=== PATIENT | male | born 1965 | race Caucasian/White ===

== ENCOUNTER 2017-01-21 14:00 | Emergency (ER) | payer SELFPAY ==
[2017-01-21 14:11] VITALS: BP 104/91; BMI 21.6
--- NOTE | 2017-01-21 15:42 | DR.ABDMALE ---
HPI - Time seen Time seen: 03:39 - PCP Primary Care Physician: none - Complaint Chief Complaint Doctors Comments: Abd pain w/o nausea, vomiting or diarrhea. Chief Complaint:: abdomen pain for several days hurting really bad - Reviewed Nurses Notes Review: Yes - Mode of arrival Mode of Arrival: Ambulatory - Timing Onset of Chief Complaint: 01/16/17 Came on: Gradually - Duration Duration: Intermittent Duration: Minutes - Location Location: LUQ, LLQ, Epigastric - Severity Severity: Moderate - Quality Quality: Aching, Burning - Context Onset: Unknown History of: Similar pain (dx) - Modifying factors Worsening Factors: Other (heat or hot water) - Associated signs and symptoms Associated Signs and Symptoms: None. denies: Diarrhea, Constipation, Melena PMH - PMH Past Medical History: No Past Surgical History: Yes Surgical History: Other Past Surgical History Comment: back - Family History History of Family Medical Conditions: Yes Family Medical History: Heart Failure, Hypertension - Social History Does patient currently use any type of tobacco product: Yes Have you used tobacco products in the last 12 months: Yes Type of Tobacco Use: Cigarettes How many years tobacco product used: 30 Does any household member use tobacco: No Alcohol Use: None Do you use any recreational Drugs:: No Lives With: Family Lives Where: Home - infectious screening In the last 2 months have you had wt loss of >10#?: NO Have you had fever, night sweats or hemotysis?: No Have you traveled outside the country in the last 6 months?: No Isolation: Standard ROS - Review of Systems Constitutional: No Symptoms Reported Eyes: No Symptoms Reported ENTM: No Symptoms Reported Respiratoy: No Symptoms Reported Cardiovascular: No Symptoms Reported Gastrointestinal/Abdominal: Abdominal Pain Neurological: No Symptoms Reported Musculoskeletal: No Symptoms Reported Integumentary: No Symptoms Reported Hematologic/Lymphatic: No Symptoms Reported Endocrine: No Symptoms Reported Psychiatric: No Symptoms Reported All Other Systems: Reviewed and Negative PE - Vital Signs Vital Signs: Pulse Resp BP Pulse Ox 01/21/17 14:07 115 H 18 104/91 98 - General Limitations: No Limitations General Appearance: Alert, In No Apparent Distress, Anxious - Head Head Exam: Normal Inspection - Eyes Eye exam: Normal Appearance, PERRL, EOMI - ENT ENT Exam: Normal Exam, Normal Oropharynx, Normal External Ear Exam, Mucous Membranes Moist - Neck Neck Exam: Normal Inspection, Full ROM, Trachea Midline - Chest Chest Inspection: Normal Inspection, Symmetric Chest Wall Rise - Respiratory Respiratory Exam: Normal Lung Sounds Bilat - Cardiovascular Cardiovascular Exam: Normal Rhythm, Tachycardia, Normal Heart Sounds - Abdominal Exam Abdominal Exam: Soft, Tenderness (LLQ and LUQ) - Back Back Exam: Normal Inspection - Extremeties Extremities Exam: Normal Inspection, Full ROM - Neurologic Neurological Exam: Alert, Oriented X3, CN II-XII Intact - Psychiatric Psychiatric Exam: Anxious - Skin Skin Exam: Warm, Dry, Intact ROR - Labs Reviewed Result Diagrams: 01/21/17 15:55 01/21/17 15:55 Laboratory: WBC 8.7 X10^3/uL (3.6-10.0) 01/21/17 15:55 RBC 4.46 X10^6/uL (4.7-6.0) L 01/21/17 15:55 Hgb 14.5 g/dL (13.5-18.0) 01/21/17 15:55 Hct 42.3 % (42.0-54.0) 01/21/17 15:55 MCV 94.9 fL (80.0-100.0) 01/21/17 15:55 MCH 32.6 pg (27.0-34.0) 01/21/17 15:55 MCHC 34.3 g/dL (33.0-35.0) 01/21/17 15:55 RDW 13.8 % (11.6-16.5) 01/21/17 15:55 Plt Count 250 X10^3/uL (150.0-450.0) 01/21/17 15:55 MPV 8.1 fL (7.4-11.0) 01/21/17 15:55 Neut % 51.9 % (42.0-75.0) 01/21/17 15:55 Lymph % 34.5 % (21.0-51.0) 01/21/17 15:55 Lanier % 10.8 % (0.0-13.0) 01/21/17 15:55 Eos % 2.2 % (0.9-2.9) 01/21/17 15:55 Baso % 0.6 % (0.2-1.0) 01/21/17 15:55 Neut # 4.5 x10^3/uL (2.2-4.8) 01/21/17 15:55 Lymph # 3.0 X10^3/uL (1.3-2.9) H 01/21/17 15:55 Lanier # 0.9 x10^3/uL (0.3-0.8) H 01/21/17 15:55 Eos # 0.2 x10^3/uL (0.0-0.2) 01/21/17 15:55 Baso # 0.0 X10^3/uL (0.0-0.1) 01/21/17 15:55 Absolute Nucleated RBC 0.0 /100WBC 01/21/17 15:55 Sodium 141 mmol/L (136-145) 01/21/17 15:55 Corrected Sodium TNP 01/21/17 15:55 Potassium 3.9 mmol/L (3.5-5.1) 01/21/17 15:55 Chloride 104 mmol/L (98-107) 01/21/17 15:55 Carbon Dioxide 30.0 mmol/L (21-32) 01/21/17 15:55 BUN 24 mg/dL (7-18) H 01/21/17 15:55 Creatinine 1.17 mg/dL (0.70-1.30) 01/21/17 15:55 Est GFR (MDRD) Af Amer > 60 (>60) 01/21/17 15:55 Est GFR (MDRD) Non-Af > 60 (>60) 01/21/17 15:55 Glucose 96 mg/dL (65-99) 01/21/17 15:55 Calcium 8.5 mg/dL (8.5-10.1) 01/21/17 15:55 Corrected Calcium TNP 01/21/17 15:55 Total Bilirubin 0.60 mg/dL (0.2-1.0) 01/21/17 15:55 AST 21 Units/L (15-37) 01/21/17 15:55 ALT 31 Units/L (12-78) 01/21/17 15:55 Alkaline Phosphatase 85 Units/L (46-116) 01/21/17 15:55 Total Protein 7.0 g/dL (6.4-8.2) 01/21/17 15:55 Albumin 3.7 g/dL (3.4-5.0) 01/21/17 15:55 Globulin 3.3 g/dL (2.5-4.5) 01/21/17 15:55 Albumin/Globulin Ratio 1.1 Ratio (1.1-2.1) 01/21/17 15:55 - Diagnosis Discharge Problem: Abdominal pain - Discharge Plan Disposition: 01 HOME, SELF-CARE Condition: Stable - Follow ups/Referrals Follow ups/Referrals: NFD,None [Primary Care Provider] - 3 days - Instructions Instructions: Abdominal Pain, Adult, [id number]
[2017-01-21 16:02] LABS: BASOPHILS % (AUTO) 0.6 % (0.2-1.0); EOSINOPHILS # (AUTO) 0.2 x10^3/uL (0.0-0.2); EOSINOPHILS % (AUTO) 2.2 % (0.9-2.9); HEMATOCRIT 42.3 % (42.0-54.0); HEMOGLOBIN 14.5 g/dL (13.5-18.0); LYMPHOCYTES % (AUTO) 34.5 % (21.0-51.0); MEAN CORPUSCULAR HEMOGLOBIN 32.6 pg (27.0-34.0); MEAN CORPUSCULAR HGB CONC 34.3 g/dL (33.0-35.0); MEAN CORPUSCULAR VOLUME 94.9 fL (80.0-100.0); MEAN PLATELET VOLUME 8.1 fL (7.4-11.0); MONOCYTES # (AUTO) 0.9 x10^3/uL (0.3-0.8); MONOCYTES % (AUTO) 10.8 % (0.0-13.0); NEUTROPHILS # (AUTO) 4.5 x10^3/uL (2.2-4.8); NEUTROPHILS % (AUTO) 51.9 % (42.0-75.0); PLATELET COUNT 250 X10^3/uL (150.0-450.0); RED BLOOD COUNT 4.46 X10^6/uL (4.7-6.0); RED CELL DISTRIBUTION WIDTH 13.8 % (11.6-16.5); WHITE BLOOD COUNT 8.7 X10^3/uL (3.6-10.0)
[2017-01-21 16:17] LABS: ALANINE AMINOTRANSFERASE 31 Units/L (12-78); ALBUMIN 3.7 g/dL (3.4-5.0); ALKALINE PHOSPHATASE 85 Units/L (46-116); ASPARTATE AMINO TRANSFERASE 21 Units/L (15-37); BLOOD UREA NITROGEN 24 mg/dL (7-18); CALCIUM 8.5 mg/dL (8.5-10.1); CHLORIDE 104 mmol/L (98-107); CREATININE 1.17 mg/dL (0.70-1.30); GLUCOSE 96 mg/dL (65-99); SODIUM 141 mmol/L (136-145); eGFR BLACK RACES > 60 (>60); eGFR NON BLACK RACES > 60 (>60)
--- NOTE | 2017-01-21 16:20 | RAD ---
HISTORY: Chest pain. Study: PA and lateral chest. Comparison: None. Findings: The trachea is midline. The cardiac silhouette is unremarkable. The lungs are clear without focal infiltrate or effusion. Multiple remote left upper rib fractures. The osseous structures otherwise appear normal for age. IMPRESSION: 1. No acute cardiopulmonary disease. Reported By:
[2017-01-21] MEDS ORDERED: PROTONIX TAB 40 MG PO ONE ×2 (16:45→16:56)
== END 2017-01-21 17:43 | disposition home or self-care (01) ==
LOC: ER 14:15
DX: R10.84 Generalized abdominal pain (principal)
CPT/HCPCS: 36415; 71020; 74176; 80053; 85025; 86677; 99283

== ENCOUNTER 2019-09-11 08:55 | Observation (INO) ==
[~2019-09-11 08:55] MED LIST: DECADRON INJ ONE; DIPRIVAN VIAL ONE; EPHEDRINE SULFATE INJ ONE; NEO-SYNEPHRINE INJ ONE; NEOSTIGMINE INJ ONE; NORCURON INJ 10 MG VIAL ONE; QUELICIN (OR ANECTINE) ONE; ROBINUL ONE; TORADOL 30 MG VIAL ONE; ULTANE GAS IN ONE; VERSED ONE; XYLOCAINE 1 % (PLAIN) ONE; ZOFRAN INJ 4 MG VIAL ONE
[2019-09-11 09:11] VITALS: BMI 22.0
[2019-09-11] MEDS ORDERED: NS 1000 ML 1,000 ML ONE (09:47)
[2019-09-11] MEDS ORDERED: DEMEROL INJ ONE (09:48)
[2019-09-11] MEDS ORDERED: DEMEROL INJ IVP ONE (10:02)
[2019-09-11] MEDS ORDERED: NS 1000 ML 1,000 ML IV ONE (10:02)
--- NOTE | 2019-09-11 10:03 | DR.EXTPAIN ---
HPI Time seen Time Seen by Provider: 09/11/19 09:40 PCP Primary Care Physician: LARON Mohan FNP HPI Comment HPI Comment: PATIENT IS 53YR OLD WHITE MALE IN ER WITH PAIN RIGHT INGUINAL HERNIA THAT IS NOT REDUCING. AT 04:30 THIS AM HE SAID IT BUSTED. NO FEVER. NAUSEATED BUT NO VOMITING. HISTORY CHRONIC BACK PAIN. NO DYSURIA. HERIA WAS DIAGNOSE 4 MONTHS AGO BY [employer] PRISCILL[employer] LARRY. Complaint/Symptoms Chief Complaint Doctor Comments: RIGHT INGUINAL HERNIA PAIN SINCE Chief Complaint:: PT C/O WAKING UP THIS AM AND HE C/O PAIN DUE TO HIS HERNIA HE WAS DX WITH A FEW MONTHS AGO, PT NOTED TO HAVE A SWELLING NOTED TO AREA ABOVE PENIS ( INGUINAL HERNIA NOTED ) PT STATES HE GOT UP THIS AM AND STARTED TO HAVE SOME PAIN THOUGHT SOMETHING HAS BUSTED ..BR Nurses notes reviewed Nurses Notes Review: Yes Source History Provided: Patient Mode of arrival Mode of Arrival: Ambulatory Timing Onset of Chief Complaint: 09/11/19 Context History of: Arthritis Associated signs and symptoms Associated Signs and Symptoms: Pain, Swelling, Abdominal Pain (RIGHT INGUINAL PAIN.) and Nausea PMH PMH Past Medical History: No Past Surgical History: Yes Surgical History: Other Past Surgical History Comment: BACK Family History History of Family Medical Conditions: No Family Medical History: Heart Failure and Hypertension Social History Does patient currently use any type of tobacco product: Yes Have you used tobacco products in the last 12 months: Yes Type of Tobacco Use: Cigarettes How many years tobacco product used: 30 Does any household member use tobacco: No Alcohol Use: Occasionally Do you use any recreational Drugs:: No Lives With: Family Lives Where: Home infectious screening In the last 2 months have you had wt loss of >10#?: NO Have you had fever, night sweats or hemotysis?: No Have you traveled outside the country in the last 6 months?: No Isolation: Standard ROS Review of Systems Constitutional: No Symptoms Reported and See HPI; negative Fever, Weakness and Fatigue Eyes: No Symptoms Reported and See HPI ENTM: No Symptoms Reported and See HPI; negative Ear Pain, Nose Discharge, Nose Congestion and Throat Pain Respiratoy: No Symptoms Reported and See HPI; negative Moist Cough, Short of Breath and Wheezing Cardiovascular: No Symptoms Reported and See HPI; negative Chest Pain and Edema Gastrointestinal/Abdominal: See HPI, Abdominal Pain and Nausea; negative Diarrh ea and Vomiting Genitourinary: No Symptoms Reported and See HPI; negative Dysuria, Frequency and Hematuria Neurological: No Symptoms Reported and See HPI; negative Headache, Weakness and Dizziness Musculoskeletal: No Symptoms Reported, See HPI and Back Pain (CHRONIC LOWER BACK PAIN.) Integumentary: No Symptoms Reported and See HPI; negative Change in Color, Rash and Juandice Hematologic/Lymphatic: No Symptoms Reported and See HPI; negative Easy Bruising and Swollen Glands Endocrine: No Symptoms Reported and See HPI; negative Increased Thirst and Increased Urine Psychiatric: No Symptoms Reported and See HPI All Other Systems: Reviewed and Negative PE Vital Signs Vitals: Temperature 97.8 F Pulse Rate 98 Respiratory Rate 18 Blood Pressure 132/82 O2 Sat by Pulse Oximetry 99 General Limitations: No Limitations General Appearance: Alert and In No Apparent Distress Head Head Exam: Normal Inspection and Atraumatic Eyes Eye exam: Normal Appearance and PERRL; negative Scleral Icterus and Conjunctival Injection ENT ENT Exam: Normal Exam, Normal Oropharynx, Normal External Ear Exam and TM's Normal Bilaterally Neck Neck Exam: Normal Inspection, Full ROM and Trachea Midline; negative Tenderness and Lymphadenopathy Chest Chest Inspection: Normal Inspection and Symmetric Chest Wall Rise; negative Tenderness Respiratory Respiratory Exam: Normal Lung Sounds Bilat; negative Accessory Muscle Use, Chest Wall Tenderness and Respiratory Distress Respiratory Exam: Bilateral: Clear to Auscultation Cardiovascular Cardiovascular Exam: Regular Rate, Normal Rhythm and Normal Heart Sounds; negative Systolic Murmur and Diastolic Murmur Abdominal Exam Abdominal Exam: Normal Inspection, Normal Bowel Sounds, Soft and Tenderness Abdominal Tenderness: RLQ and Suprapubic Extremities Extremities Exam: Normal Inspection and Normal Capillary Refill; negative Tenderness, Edema and Calf Tenderness Back Back Exam: Normal Inspection and Paraspinal Tenderness (LOWER BACK.) Neurological Neurological Exam: Alert, Oriented X3 and CN II-XII Intact; negative Motor Sensory Deficit Psychiatric Psychiatric Exam: Normal Affect, Normal Mood and Other (IN PAIN.) Skin Skin Exam: Warm, Dry, Intact and Normal Color MDM Differential Diagnosis Differential Diagnosis: Other (STRAGULATED OR INCACRCERATED INGUINAL HERNIA, RIGHT INGUINAL HERNIA/SEVERE PAIN) COURSE Treatment Treatment: SEE ORDERS. NS 125CC/HER, DEMOROL 25MG IV ANDZOFRAN 4MG IV. PAIN STILL SEVERE. DELAUDID 2MG IV. PAIN IMPROVING. Consultation Consultation Comments: DR. INGRAM, SURGEON CONSULTED. IN ER AND EVALUATED PATIENT AND WILL TAKE HIM TO SURGERY. DR. MASTERSON, MEDICINE FANS CLERK WILL ADMIT PATIENT. Education/Counseling Education/Counseling: Patient and Family Educated On: Diagnosis ROR Labs Reviewed Laboratory Results Reviewed?: Yes Opioid Opioid Risk Tool Age (Du box if [id number]): No History of Preadolescent Sexual Abuse: No Total: 0 Total Score Risk Category: Low Risk Copyright: Nestor HUGHES predicting aberrant behaviors Diagnosis Discharge Problem: Incarcerated right inguinal hernia Instructions Instructions: Vertigo Hypertension, [id number] Dizziness Forms: Excuse From Work Patient Portal
[2019-09-11] MEDS ORDERED: DILAUDID INJ IVP PRN ×2 (10:10→12:50)
[2019-09-11] MEDS ORDERED: ZOFRAN INJ 4 MG VIAL ONE (10:17)
[2019-09-11] MEDS ORDERED: DECADRON INJ ONE (10:21)
[2019-09-11] MEDS ORDERED: FENTANYL INJ 100 mcg ONE (10:21)
[2019-09-11] MEDS ORDERED: LR 1000 ML IV 1,000 ML IV ONE ×2 (10:21→12:19)
[2019-09-11] MEDS ORDERED: POLYMYXIN B SULFATE ONE (10:27)
[2019-09-11] MEDS ORDERED: XYLOCAINE 1 % (PLAIN) ONE (10:27)
[2019-09-11] MEDS ORDERED: LEVAQUIN PREMIX IV 500 MG 500 MG/100 ML BAG IV SCH ×2 (11:00→12:00)
--- NOTE | 2019-09-11 11:01 | RAD ---
HISTORYPreopSTUDYPortable AP [id number] heart size with lungs and pleural spaces clear of active disease. No mediastinal or hilar lesion noted. Multiple old fractures noted in the left chest and shoulder.IMPRESSIONNo active chest disease demonstrated.Electronically signed by: EFRAIN LARRY (Sep 11, 2019 10:58:53)
[2019-09-11] MEDS ORDERED: ANCEF 1 GRAM IV PREMIX* 1 G/50 ML BAG IV ONE (11:10)
[2019-09-11 11:52] LABS: APPEARANCE,URINE HAZY (CLEAR); COLOR,URINE DARK YELLOW (YELLOW)
[2019-09-11 11:53] LABS: BACTERIA,URINE TRACE /HPF (NEGATIVE); MUCUS,URINE MODERATE /HPF (NEGATIVE); SQUAMOUS EPITHELIAL CELL,UR FEW /HPF (NEGATIVE)
[2019-09-11] MEDS ORDERED: PHENERGAN INJ 25 MG IM PRN (12:50)
[2019-09-11] MEDS ORDERED: BENADRYL INJ 50 MG VIAL IVP PRN (12:50)
[2019-09-11] MEDS ORDERED: REGLAN INJ 10 MG VIAL IVP PRN (12:50)
[2019-09-11] MEDS ORDERED: ZOFRAN INJ 4 MG VIAL IVP PRN (12:50)
[2019-09-11] MEDS ORDERED: DILAUDID INJ ONE (13:07)
[2019-09-11 13:44] LABS: BASOPHILS % (AUTO) 0.5 % (0.2-1.0); EOSINOPHILS # (AUTO) 0.1 x10^3/uL (0.0-0.2); HEMOGLOBIN 14.5 g/dL (13.5-18.0); LYMPHOCYTES # (AUTO) 1.1 X10^3/uL (1.3-2.9); LYMPHOCYTES % (AUTO) 12.7 % (21.0-51.0); MEAN CORPUSCULAR HEMOGLOBIN 33.6 pg (27.0-34.0); MEAN CORPUSCULAR HGB CONC 33.7 g/dL (33.0-35.0); MEAN CORPUSCULAR VOLUME 99.7 fL (80.0-100.0); MEAN PLATELET VOLUME 8.8 fL (7.4-11.0); MONOCYTES # (AUTO) 0.4 x10^3/uL (0.3-0.8); MONOCYTES % (AUTO) 4.2 % (0.0-13.0); NEUTROPHILS % (AUTO) 81.6 % (42.0-75.0); PLATELET COUNT 190 X10^3/uL (150.0-450.0); RED BLOOD COUNT 4.31 X10^6/uL (4.7-6.0); RED CELL DISTRIBUTION WIDTH 13.4 % (11.6-16.5); WHITE BLOOD COUNT 8.6 X10^3/uL (3.6-10.0)
[2019-09-11 13:58] LABS: ALANINE AMINOTRANSFERASE 21 Units/L (12-78); ALKALINE PHOSPHATASE 98 Units/L (46-116); ASPARTATE AMINO TRANSFERASE 19 Units/L (15-37); BLOOD UREA NITROGEN 10 mg/dL (7-18); CALCIUM 8.5 mg/dL (8.5-10.1); CARBON DIOXIDE 29.3 mmol/L (21-32); CHLORIDE 103 mmol/L (98-107); COR CA(FOR HYPOALB) 9.3 mg/dL (8.5-10.1); COR NA(FOR HYPERGLY) 139 mmol/L (136-145); CREATININE 0.97 mg/dL (0.70-1.30); SODIUM 138 mmol/L (136-145); TOTAL PROTEIN 6.2 g/dL (6.4-8.2); eGFR NON BLACK RACES > 60 (>60)
--- NOTE | 2019-09-11 14:13 | OR.IMMED ---
Immediate Post-Op Note - Immediate Post-Op Note Pre-Op Diagnosis: incarcerated Rt inguinal hernia . Post-Op Diagnosis: incarcerated Rt inguinal hernia with loops of small bowel in the hernia sac . Procedure: exploration Rt groin , lysis of small bowel adhesions . repair of incarcerated Rt inguinal hernia , Specimens Removed: hernia sac. Drains: NONE Condition: Stable (to observe over night .)
[2019-09-11] MEDS ORDERED: D5 1/2 NS 1000 ML 1,000 ML IV ONE (14:18)
[2019-09-11] MEDS: D5 1/2 NS 1000 ML 1,000 ML IV SCH ×3 (14:37→22:30)
[2019-09-11] MEDS: DILAUDID INJ IVP PRN (20:47)
[2019-09-11] MEDS: ANCEF VIAL 1 GRAM IVP SCH (21:24)
[2019-09-12] MEDS: DILAUDID INJ IVP PRN (06:01)
[2019-09-12] MEDS: ANCEF VIAL 1 GRAM IVP SCH (06:13)
[2019-09-12] MEDS: D5 1/2 NS 1000 ML 1,000 ML IV SCH (06:14)
[2019-09-12 08:53] VITALS: BP 124/83
== END 2019-09-12 10:10 | disposition home or self-care (01) ==
LOC: ER 09:01 → OBS 09:01 → ER 11:28
PROVIDERS: ADMIT Surgery; ATTEND Surgery
DX: K40.30 Unilateral inguinal hernia, with obstruction, without gangrene, not specified as recurrent; K56.2 Volvulus
CPT/HCPCS: 36415; 71010; 71045; 80053; 81015; 85025; 87070; 87075; 87205; 93005; 94760; 96360; 96361; 96374; 99284; A4222; G0378; J0330; J0690; J1100; J1170; J1885; J2175; J2250; J2370; J2405; J2704; J2710; J3010; J3490; J7030; J7120; S5010